=== PATIENT | female | born 1985 | race Caucasian/White ===

== ENCOUNTER 2022-12-13 02:15 | Emergency (ER) | payer BC ==
[~2022-12-13] VITALS: Ht 165.1 cm; Wt 136.1 kg
[2022-12-13 02:22] VITALS: BP 112/96
--- NOTE | 2022-12-13 02:27 | NUR ---
TO LOBBY FOLLOWING TRIAGE
--- NOTE | 2022-12-13 03:35 | NUR ---
PER ADMITTING, PT LWBS
== END 2022-12-13 03:35 | disposition left against medical advice (07) ==
LOC: MED 02:15
DX: O26.892 Other specified pregnancy related conditions, second trimester (principal); M54.50 Low back pain, unspecified; Z3A.25 25 weeks gestation of pregnancy; Z53.21 Procedure and treatment not carried out due to patient leaving prior to being seen by health care provider
CPT/HCPCS: 99281